=== PATIENT | female | born 1990 ===

== ENCOUNTER → 2018-07-19 | Outpatient (CLI) | payer OTHER ==
--- NOTE | 2018-07-19 14:01 | WOMENS IMAGING REPORT ---
EXAM DESCRIPTION: U/S THYROID/ST TIS HEAD NECK COMPLETED DATE/TIME: 07/19/2018 1:37 pm REASON FOR STUDY: GENERALIZED ENLARGED LYMPH NODES;R59.1 R59.1 GENERALIZED ENLARGED LYMPH NODES COMPARISON: None. TECHNIQUE: Dynamic and static escalera-scale images acquired of the thyroid gland. Selected additional c olor/power Doppler images recorded. All images stored to PACS. LIMITATIONS: None. FINDINGS: RIGHT LOBE: The right lobe of the thyroid gland measures 4.9 x 1.6 x 1.8 cm, normal size. Homogeneous echotexture. No cystic or solid masses. LEFT LOBE: The left lobe of the thyroid gland measures 4.8 x 1.3 x 1.6 cm, normal size. Homogeneous echotexture. No cystic or solid masses. ISTHMUS: The isthmus measures 2.5 mm in AP diameter, normal size. Homogeneous echotexture. No cyst ic or solid masses. OTHER: A 0.9 x 1.0 x 0.2 cm lymph node with a hilus of fat in the right lateral neck. This correlat es to the clinically palpable mass and maybe on a reactive basis. IMPRESSION: 1. NORMAL THYROID ULTRASOUND. 2. A lymph node is identified in the right lateral neck, correlating to the patient's clinically pal pable mass. This finding may be on a reactive basis. Correlation suggested and if the finding is pe rsistent, further evaluation with CT Neck with IV contrast may be helpful. TECHNICAL DOCUMENTATION: JOB ID: [id number] [employer]- All Rights Reserved Reading location - IP/workstation name: [email or web address]
== END ==
LOC: WI 12:45
PROVIDERS: ATTEND Nurse Practitioner Family
DX: R59.1 Generalized enlarged lymph nodes (principal)
CPT/HCPCS: 76536